=== PATIENT | male | born 1940 | race Caucasian/White ===

== ENCOUNTER 2016-08-04 10:03 | Emergency (ER) | payer OTHER ==
--- NOTE | ~2016-08-04 | CT71 ---
[facility] A Service of [facility] RADIOLOGY TEXT RESULTS PATIENT: MARGE DAVID LOCATION: SED : 39 UNIT #: [id number] AGE: [address]: Mandeep Harrell MD SEX: M ORDER DR: [id number] [place] [id number] E MR#: [id number] Acc #: [id number] NAME: MARGE DAVID : 1940 SEX: M STUDY DATE/TIME: 08/04/2016 11:17 UNIT: SED ROOM: STUDY DESCRIPTION: CT Head Wo Contrast Attending Physician: Mandeep Harrell M.D. Ordering Physician: Mandeep Harrell M.D. Primary Care Physician: Lakesha Son M.D. MEDICAL IMAGING REPORT This report is preliminary unless electronic signature is present. EXAM CT scan of the head without contrast. INDICATION Fall today with confusion. COMPARISON No relevant comparison study. TECHNIQUE Unenhanced images were obtained of the brain. This CT exam was performed with one or more of the following radiation dose reduction techniques: automatic exposure control, adjustment of mA and/or kV according to patient size, and iterative reconstruction. FINDINGS There is mild generalized atrophy. There are no masses or extraaxial fluid collections or hemorrhage. IMPRESSION Mild atrophy. Otherwise normal. Dictated by... Dima Larson M.D. THIS IS AN ELECTRONICALLY VERIFIED REPORT Dima Larson M.D. at 08/04/2016 5:02 PM FEL/tmw [facility] A Service of [facility] RADIOLOGY TEXT RESULTS PATIENT: MARGE DAVID LOCATION: SED : 39 UNIT #: [id number] AGE: [address]: Mandeep Harrell MD SEX: M ORDER DR: TD: 08/04/2016 15:59 JOB #: [id number] MEDICAL IMAGING REPORT Page 1 of 1
--- NOTE | ~2016-08-04 | EKG ---
PATIENT: MARGE DAVID UNIT #: [id number] Ventricular Rate: 102 BPM Atrial Rate: 85 BPM QRS Duration: 88 ms Q-T Interval: 330 ms QTC Calculation(Bezet): 430 ms Calculated R Randolph: 26 degrees Calculated T Randolph: 6 degrees Diagnosis Line: Atrial fibrillation with rapid ventricular Diagnosis Line: response with premature ventricular or aberrantly Diagnosis Line: conducted complexes Diagnosis Line: Septal infarct , age undetermined Diagnosis Line: Abnormal ECG Diagnosis Line: No previous ECGs available Diagnosis Line: Confirmed by ARIN HYLTON MD ([id number]) on Diagnosis Line: 08/07/2016 3:40:10 PM INTERPRETING MD: CONCETTA GROVER
--- NOTE | ~2016-08-04 | CT4 ---
[facility] A Service of [facility] RADIOLOGY TEXT RESULTS PATIENT: MARGE DAVID LOCATION: SED : 39 UNIT #: [id number] AGE: [address]: Mandeep Harrell MD SEX: M ORDER DR: [id number] [place] [id number] E MR#: [id number] Acc #: [id number] NAME: MARGE DAVID : 1940 SEX: M STUDY DATE/TIME: 08/04/2016 11:23 UNIT: SED ROOM: STUDY DESCRIPTION: CT Abd and Pelv Wo Cont Attending Physician: Mandeep Harrell M.D. Ordering Physician: Mandeep Harrell M.D. Primary Care Physician: Lakesha Son M.D. MEDICAL IMAGING REPORT This report is preliminary unless electronic signature is present. EXAM CT abdomen and pelvis without contrast, 08/04/2016, 1123 hours. CLINICAL HISTORY 75-year-old man who fell today. Patient has confusion with complaints of abdominal pain and back pain. COMPARISON CT abdomen 01/27/[address] chest 08/31/2008. TECHNIQUE Helical noncontrasted images were obtained from the lung bases through the pubic symphysis without oral or intravenous contrast. Sagittal and coronal reconstructions were performed. Total exam DLP 2846 mGy-cm for the CT of the abdomen and pelvis and the CT thoracic spine. This CT exam was performed with one or more of the following radiation dose reduction techniques: automatic exposure control, adjustment of mA and/or kV according to patient size, and iterative reconstruction. FINDINGS Images through the lung bases demonstrate minimal linear densities. There is no contusion, nodule, effusion, or pneumothorax. Images through the abdomen demonstrate a normal appearance to the liver, spleen. There is fatty replacement of the pancreas throughout. The gallbladder and bile ducts are normal. The adrenal glands are normal. The kidneys are mildly atrophic bilaterally without mass, stone, or obstruction. There is no perinephric fluid or hematoma. The abdominal aorta is normal in caliber with atherosclerotic calcifications present. There is an IVC filter present beginning just below the level of the right renal vein. The stomach is contracted and unopacified but appears normal. There is no small bowel distension or small bowel wall thickening. The cecum and STS. [facility] A Service of [facility] RADIOLOGY TEXT RESULTS PATIENT: MARGE DAVID LOCATION: SED : 39 UNIT #: [id number] AGE: [address]: Mandeep Harrell MD SEX: M ORDER DR: terminal ileum are normal. There is no evidence of appendicitis. The colon demonstrates no wall thickening. There is moderate stool throughout. CT pelvis demonstrates a normal appearance to the sigmoid colon and rectum. The bladder, seminal vesicles, and prostate are within normal limits. There is multilevel degenerative change in the lumbar spine with diffuse osteopenia. There is apparent vertebral body height loss at T11 with erosion of the articular surface of the anterior superior endplate. This could represent reactive change from degenerative findings. There is abnormal appearance at the L1-2 disc space with widening of the disc space, disruption of the articular surfaces of the inferior aspect of L1 and superior aspect of L2. The findings raise concern for infection such as diskitis with osteomyelitis. This could simply be related to degenerative change, however, does represent a change from 2008 and is concerning for infection. There is apparent fusion across L5-S1 with bony fusion in the lower lumbar spine posterior elements. There is degenerative change at the sacrum and sacroiliac joints and bony deformity left medial iliac wing, likely a bone graft harvest site. Irregularity of the lateral anterior right iliac wing either post-traumatic or previous bone graft harvest site. IMPRESSION 1. There is no acute intraabdominal abnormality. There is some fatty replacement of the pancreas and an IVC filter. There is no renal or ureteral calculus. There is no ascites or hematoma. 2. The lumbar spine is abnormal. There is disc height loss and endplate destruction at the inferior endplate of L1 superior endplate of L2 with irregularity. Findings are concerning for acute diskitis with osteomyelitis. There is multilevel degenerative change with question of abnormal appearance at T10-11 as well. Further evaluation with MRI without and with contrast is recommended to include T10 through L5. 3. The lung bases are clear. There is no pleural effusion or rib lesion seen. STAT * RESULT Dictated by... Gema Wadsworth M.D. THIS IS AN ELECTRONICALLY VERIFIED REPORT Gema Wadsworth M.D. at 08/04/2016 2:31 PM [facility] A Service of [facility] RADIOLOGY TEXT RESULTS PATIENT: MARGE DAVID LOCATION: [facility] [place] : 39 UNIT #: [id number] AGE: [address]: Mandeep Harrell MD SEX: M ORDER DR: Kayy TD: 08/04/2016 12:19 JOB #: [id number] MEDICAL IMAGING REPORT Page 1 of 1
--- NOTE | ~2016-08-04 | CT122 ---
[facility]. [facility] A Service [facility] RADIOLOGY TEXT RESULTS PATIENT: MARGE DAVID LOCATION: SED : 39 UNIT #: [id number] AGE: [address]: Mandeep Harrell MD SEX: M ORDER DR: [id number] [place] [id number] E MR#: [id number] Acc #: [id number] NAME: MARGE DAVID : 1940 SEX: M STUDY DATE/TIME: 08/04/2016 10:46 UNIT: SED ROOM: STUDY DESCRIPTION: CT Thoracic Spine Wo Cont Attending Physician: Mandeep Harrell M.D. Ordering Physician: Mandeep Harrell M.D. Primary Care Physician: Lakesha Son M.D. MEDICAL IMAGING REPORT This report is preliminary unless electronic signature is present. EXAM Thoracic spine CT 08/04 INDICATIONS Mid-back pain after falling today. TECHNIQUE Axial images were obtained through the thoracic spine without contrast. Multiplanar reformats were obtained. This CT exam was performed with one or more of the following radiation dose reduction techniques: automatic exposure control, adjustment of mA and/or kV according to patient size, and iterative reconstruction. COMPARISON STUDIES No comparison thoracic spine CT. FINDINGS Patient is status post lower cervical fusion with an anterior plate and screws. Thoracic alignment is normal. 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 Partially visible on this exam and better seen on the abdomen and pelvis CT from today, is marked abnormality of the L1-2 disc with endplate erosive changes and soft tissue changes around the disc. This is highly suspicious for diskitis and potentially osteomyelitis. There is mild anterior compression at T10-11 with erosive changes in the endplates as well but to a lesser degree than at the L1-2 level. This could also potentially reflect diskitis and osteomyelitis. I would recommend followup with pre and postcontrast MRI of the thoracolumbar spine if the patient is a candidate for MRI. No clearly acute fractures are seen. IMPRESSION 1. No acute fracture or malalignment. [facility] A Service [facility] RADIOLOGY TEXT RESULTS PATIENT: MARGE DAVID [place] [facility] [place] 39 UNIT #: [id number] AGE: [address]: Mandeep Harrell MD SEX: M ORDER DR: 2. Marked irregularity of the L1-2 disc with surrounding erosions in the adjacent endplates. Similar but less pronounced changes are noted at the T10-11 level. Findings are certainly concerning for diskitis with possible osteomyelitis. Followup with pre and post contrast MRI of the thoracic and lumbar spine is recommended if patient is a candidate for MR. Dictated by... Saul De Leon Jr., M.D. THIS IS AN ELECTRONICALLY VERIFIED REPORT Saul De Leon Jr., M.D. at 08/04/2016 3:54 PM HERMELINDA/awilda TD: 08/04/2016 15:47 JOB #: [id number] MEDICAL IMAGING REPORT Page 1 of 1
[~2016-08-04 10:03] MED LIST: ALDACTONE25 MG PO; ASPIRIN81 M1 PO; COUMADIN PO; COUMADIN2.5 MG PO; COUMADIN3 MG PO; DESYREL50 MG DOB; FINASTERIDE5 M1 PO; FLUOXETINE HCL20 M1 PO; LASIX20 MG PO; METOPROLOL TAR100 MG PO; NITROGLYGERIN0.4 MG SL; PANTOPRAZOLE SO40 MG PO; PRAVASTATIN SOD40 MG PO; PRINIVIL40 MG PO; SPIRONOLACTONE/1 TAB PO; TARKA PO; TOPROL XL100 MG PO; TYLENOL EXTRA500 M1 PO
[2016-08-04] MEDS ORDERED: FINASTERIDE PO (10:05)
[2016-08-04] MEDS ORDERED: FLUOXETINE PO (10:05)
[2016-08-04] MEDS ORDERED: AMLODIPINE PO (10:05)
[2016-08-04] MEDS ORDERED: LASIX PO (10:06)
[2016-08-04] MEDS ORDERED: IPRATROPIUM BROMIDE (10:06)
[2016-08-04] MEDS ORDERED: NORTRIPTYLINE PO (10:07)
[2016-08-04] MEDS ORDERED: PANTOPRAZOLE PO (10:07)
[2016-08-04] MEDS ORDERED: METOPROLOL PO (10:07)
[2016-08-04] MEDS ORDERED: SPIRONOLACTONE PO (10:08)
[2016-08-04] MEDS ORDERED: TAMSULOSIN PO (10:08)
[2016-08-04] MEDS ORDERED: PRAVASTATIN PO (10:08)
[2016-08-04] MEDS ORDERED: WARFARIN PO (10:09)
[2016-08-04] MEDS ORDERED: TRAZODONE PO (10:09)
[2016-08-04] MEDS ORDERED: VENTOLIN INHALER (10:09)
[2016-08-04] MEDS ORDERED: DAPTOMYCIN (10:14)
[2016-08-04] MEDS ORDERED: PERCOCET10 PO (11:26)
[2016-08-04 13:34] LABS: BASOPHIL# 0.1 X10e3 (0-0.3); BASOPHIL% 0.6 % (0-2.5); EOSINOPHIL% 0.5 % (0.0-7.0); HEMATOCRIT 29.1 % (38.0-50.0); HEMOGLOBIN 9.5 gm/dL (13.0-16.0); LYMPHOCYTE# 0.9 X10e3 (1.0-3.5); LYMPHOCYTE% 10.1 % (17.0-45.0); MEAN CELL VOLUME 76.9 FL (83-96); MEAN CORPUSCULAR HGB CONC 32.5 g/dL (30-36); MEAN PLATELET VOLUME 6.9 FL (6.5-11.5); MONOCYTE# 0.7 X10e3 (0-1.0); MONOCYTE% 7.5 % (3.0-12.0); NEUTROPHIL# 7.3 X10e3 (1.5-7.1); NEUTROPHIL% 81.3 % (40-75); PLATELET COUNT 241 X10e3 (140-420); RED BLOOD COUNT 3.79 X10e (3.90-5.60); RED CELL DISTRIBUTION WIDTH 19.7 % (11.0-15.5)
[2016-08-04 13:59] LABS: BILIRUBIN, DIRECT 0.1 mg/dL (0.0-0.2); BILIRUBIN,INDIRECT 0.3 mg/dL (0.0-0.9); BILIRUBIN,TOTAL 0.4 mg/dL (0.2-2.0); CALCIUM SERUM 9.3 mg/dL (8.4-10.2); GLOM FILT RATE Estimated 31.5 mL/min (>60); POTASSIUM 3.6 mmol/L (3.5-5.1); PROTEIN TOTAL SERUM 7.1 g/dL (6.0-8.3)
[2016-08-04 14:15] LABS: DIFF IND NO
[2016-08-04 14:39] LABS: INR 2.5; PROTHROMBIN TIME (PATIENT) 27.2 SECONDS (9.6-11.5)
== END 2016-08-04 22:58 ==
LOC: SED 10:03
PROVIDERS: Emergency Medicine
DX: M46.25 Osteomyelitis of vertebra, thoracolumbar region (principal); S49.92XA Unspecified injury of left shoulder and upper arm, initial encounter; E03.9 Hypothyroidism, unspecified; I10 Essential (primary) hypertension; K21.9 Gastro-esophageal reflux disease without esophagitis; W18.30XA Fall on same level, unspecified, initial encounter; Y92.009 Unspecified place in unspecified non-institutional (private) residence as the place of occurrence of the external cause
CPT/HCPCS: 36415; 70450; 72128; 74176; 80048; 80076; 83605; 83690; 85025; 85610; 85730; 87040; 93005; 99284; 99285

== ENCOUNTER → 2016-10-16 | Outpatient (CLI) | payer OTHER ==
[~2016-10-16] MED LIST changes: +AMLODIPINE PO; +DAPTOMYCIN; +FINASTERIDE PO; +FLUOXETINE PO; +IPRATROPIUM BROMIDE; +LASIX PO; +METOPROLOL PO; +NORTRIPTYLINE PO; +PANTOPRAZOLE PO; +PERCOCET10 PO; +PRAVASTATIN PO; +SPIRONOLACTONE PO; +TAMSULOSIN PO; +TRAZODONE PO; +VENTOLIN INHALER; +WARFARIN PO
[2016-10-16 13:29] LABS: HEMATOCRIT 27.6 % (38.0-50.0); HEMOGLOBIN 8.9 gm/dL (13.0-16.0); MEAN CELL VOLUME 79.2 FL (83-96); MEAN CORPUSCULAR HEMOGLOBIN 25.7 PG (28-34); MEAN CORPUSCULAR HGB CONC 32.4 g/dL (30-36); MEAN PLATELET VOLUME 7.2 FL (6.5-11.5); RED BLOOD COUNT 3.48 X10e (3.90-5.60); RED CELL DISTRIBUTION WIDTH 17.3 % (11.0-15.5); WHITE BLOOD COUNT 8.1 X10e3 (4.0-10.5)
[2016-10-16 13:55] LABS: BILIRUBIN,TOTAL 0.4 mg/dL (0.2-2.0); BUN/CREATININE RATIO 9.09; CALCIUM SERUM 8.8 mg/dL (8.4-10.2); CREATININE SERUM 1.1 mg/dL (0.6-1.4); GLOM FILT RATE Estimated 64.9 mL/min (>60); POTASSIUM 3.7 mmol/L (3.5-5.1); PROTEIN TOTAL SERUM 6.1 g/dL (6.0-8.3)
== END | disposition home or self-care (01) ==
LOC: CCART 12:57
PROVIDERS: Internal Medicine
DX: M86.9 Osteomyelitis, unspecified (principal)
CPT/HCPCS: 80053; 80202; 85027; 85652; 86140